=== PATIENT | female | born 1985 | race Caucasian/White ===

== ENCOUNTER → 2019-01-01 08:39 | Outpatient (CLI) | payer OTHER | END | disposition home or self-care (01) | LOC: D.RT 08:39 | PROVIDERS: ATTEND Family Medicine | DX: R06.2 Wheezing (principal) ==

== ENCOUNTER 2019-11-03 20:45 | Emergency (ER) | payer OTHER ==
[~2019-11-03] VITALS: Ht 165.1 cm; Wt 77.3 kg
[2019-11-03 20:57] VITALS: Ht 165.1 cm; Wt 77.3 kg
[2019-11-03 21:24] LABS: BASOPHILS 0.7 % (0-2); EOSINOPHILS 5.9 % (0-7); HEMOGLOBIN 13.3 g/dL (12-16); IMMATURE GRANULOCYTES 0.1 % (0-5); LYMPHOCYTES 35.6 % (15-50); MCH 30.1 pg (26.0-34.0); MCHC 32.4 g/dL (31.0-37.0); MCV 92.8 fL (80.0-100.0); MONOCYTES 10.5 % (2-11); NEUTROPHILS 47.2 % (40-80); PLATELET COUNT 239 10x3/uL (130-400); RBC 4.42 10x6/uL (4.00-5.40); RDW 13.9 % (11.5-14.5); WBC 8.5 10x3/uL (4.8-10.8)
[2019-11-03 21:34] LABS: CALC OSMOLALITY 278 mosm/kg (275-300); CALCIUM 8.9 mg/dL (8.5-10.1); CARBON DIOXIDE 28.3 mmol/L (21.0-32.0); CHLORIDE - SERUM 103 mmol/L (98-107); CREATININE - SERUM 0.9 mg/dL (0.6-1.3); GLUCOSE 72 mg/dL (74-106); INR 0.94 (0.85-1.17); POTASSIUM - SERUM 3.4 mmol/L (3.5-5.1); PROTIME 12.5 SECONDS (11.6-15.0); SODIUM 139 mmol/L (136-145); UREA NITROGEN 19 mg/dL (7-18); eGFR NON AFRICAN AMERICAN 76 mL/min (90-120)
[2019-11-03 21:51] LABS: ALBUMIN 4.1 g/dL (3.4-5.0); ALKALINE PHOSPHATASE 54 U/L (30-120); ALT (SGPT) 20 U/L (10-68); BILIRUBIN - TOTAL 0.33 mg/dL (0.2-1.3); CKMB 0.9 U/L (0.0-3.6); CREATINE KINASE 71 UL (21-215); MAGNESIUM - SERUM 2.1 mg/dL (1.8-2.4); PROTEIN - SERUM 7.2 g/dL (6.4-8.2)
[2019-11-03 21:52] LABS: TROPONIN-I < 0.017 ng/mL (0.000-0.060)
[2019-11-03 22:50] VITALS: BP 102/42
== END 2019-11-03 22:51 | disposition home or self-care (01) ==
LOC: D.ER 20:45
PROVIDERS: Family Medicine
DX: R07.89 Other chest pain (principal)

== ENCOUNTER 2019-11-19 00:42 | Emergency (ER) | payer OTHER ==
[~2019-11-19] VITALS: Ht 165.1 cm; Wt 77.3 kg
[2019-11-19 00:53] VITALS: Ht 165.1 cm; Wt 77.3 kg
[2019-11-19 01:03] LABS: BASOPHILS 0.4 % (0-2); EOSINOPHILS 3.9 % (0-7); HEMATOCRIT 41.2 % (36.0-48.0); HEMOGLOBIN 13.1 g/dL (12-16); IMMATURE GRANULOCYTES 0.2 % (0-5); LYMPHOCYTES 21.3 % (15-50); MCH 29.6 pg (26.0-34.0); MCHC 31.8 g/dL (31.0-37.0); MCV 93.2 fL (80.0-100.0); MEAN PLATELET VOLUME 9.6 fL (7.4-10.4); MONOCYTES 6.9 % (2-11); NEUTROPHILS 67.3 % (40-80); PLATELET COUNT 273 10x3/uL (130-400); RBC 4.42 10x6/uL (4.00-5.40); RDW 13.7 % (11.5-14.5); WBC 11.6 10x3/uL (4.8-10.8)
[2019-11-19 01:14] LABS: CALC OSMOLALITY 278 mosm/kg (275-300); CALCIUM 8.5 mg/dL (8.5-10.1); CARBON DIOXIDE 28.9 mmol/L (21.0-32.0); CHLORIDE - SERUM 104 mmol/L (98-107); CREATININE - SERUM 0.9 mg/dL (0.6-1.3); GLUCOSE 100 mg/dL (74-106); POTASSIUM - SERUM 3.7 mmol/L (3.5-5.1); SODIUM 139 mmol/L (136-145); UREA NITROGEN 15 mg/dL (7-18); eGFR NON AFRICAN AMERICAN 76 mL/min (90-120)
[2019-11-19 01:22] LABS: ALBUMIN 3.8 g/dL (3.4-5.0); ALKALINE PHOSPHATASE 63 U/L (30-120); ALT (SGPT) 13 U/L (10-68); AMYLASE - SERUM 47 U/L (25-115); BILIRUBIN - TOTAL 0.46 mg/dL (0.2-1.3); LIPASE 69 U/L (73-393); PROTEIN - SERUM 6.9 g/dL (6.4-8.2); TROPONIN-I < 0.017 ng/mL (0.000-0.060)
[2019-11-19 02:31] LABS: BILIRUBIN NEGATIVE (NEGATIVE); GLUCOSE NEGATIVE (NEGATIVE); HCG URINE NEGATIVE (NEGATIVE); KETONE NEGATIVE (NEGATIVE); NITRITE NEGATIVE (NEGATIVE); UROBILINOGEN NORMAL (NORMAL)
[2019-11-19] MEDS ORDERED: ZOFRAN ODT4 MG/UDTAB PO (03:32)
[2019-11-19] MEDS ORDERED: PROTONIX40 MG PO (03:32)
[2019-11-19] MEDS ORDERED: CARAFATE1 G PO (03:32)
[2019-11-19 04:10] VITALS: BP 116/77
== END 2019-11-19 04:10 | disposition home or self-care (01) ==
LOC: D.ER 00:42
PROVIDERS: Family Medicine
DX: R12 Heartburn (principal); K21.0 Gastro-esophageal reflux disease with esophagitis; K29.60 Other gastritis without bleeding